=== PATIENT | female | born 1935 | race Caucasian/White ===

== ENCOUNTER 2021-10-10 18:35 | Inpatient (IN) | payer OTHER ==
[~2021-10-10] VITALS: Ht 157.5 cm; Wt 80.9 kg
[2021-10-10 20:15] LABS: Basophils # (auto) 0 10 ^3/uL (0-0.2); Basophils % (auto) 0.5 % (0.0-2.0); Eosinophils # (auto) 0.1 10 ^3/uL (0-0.8); Hematocrit 38.4 % (36.0-46.0); Hemoglobin 12.6 g/dL (12.2-16.2); Lymphocytes # (auto) 1.2 10 ^3/uL (0.4-5.4); Lymphocytes % (auto) 14.9 % (10.0-50.0); Mean Corpuscular Hemoglobin 32.1 pg (28.0-32.0); Mean Corpuscular Hgb Conc. 32.8 g/dL (32.0-36.0); Monocytes # (auto) 0.7 10 ^3/uL (0-1.3); Monocytes % (auto) 7.9 % (0.0-12.0); Neutrophils # (auto) 6.3 10 ^3/uL (1.6-8.6); Neutrophils % (auto) 75.7 % (37.0-80.0); Nucleated Red Blood Cells % 0.5 %; Red Blood Cells 3.91 10^6/uL (4.0-5.20); Red Cell Distribution Width 15.4 % (11.8-14.3); White Blood Cell 8.3 10^3/uL (4.4-10.8)
[2021-10-10 20:32] LABS: Albumin 2.8 g/dL (3.4-5.0); Potassium 4.5 mmol/L (3.5-5.1)
[2021-10-10 20:37] LABS: Bilirubin, Total 2.5 mg/dL (0.2-1.0); Total Protein 6.1 g/dL (6.4-8.2)
[2021-10-10 21:07] LABS: BUN/Creatinine Ratio 31.5
[2021-10-10 23:52] LABS: Urine Bacteria NONE SEEN /hpf (None Seen); Urine Blood Negative /uL (Negative); Urine Hyaline Cast MOD /lpf (0 - 2); Urine Specific Gravity 1.012 (1.001-1.035); Urine WBC 2 /hpf (0 - 5)
[2021-10-11] MEDS ORDERED: ISOS10TA2 PO (04:52)
[2021-10-11] MEDS ORDERED: METO-159 PO (04:52)
[2021-10-11] MEDS ORDERED: APIX2.5T PO (04:52)
[2021-10-11] MEDS ORDERED: AMIO200T33 PO (04:52)
[2021-10-11] MEDS ORDERED: ALLO100T PO (04:52)
[2021-10-11] MEDS ORDERED: ATOR40TA52 PO (04:52)
[2021-10-11] MEDS ORDERED: BUME2TAB5 PO (04:52)
[2021-10-11] MEDS ORDERED: HYDR10TA26 PO (04:52)
[2021-10-11] MEDS ORDERED: MORPHINE SULFATE INJ 2 MG/ml SYRG IV PRN (10:30)
[2021-10-11] MEDS ORDERED: NITROGLYCERIN 0.4 MG SL TAB SL PRN (10:30)
[2021-10-11] MEDS ORDERED: SOD CHL 0.45% 1,000 ML IV ONE (10:30)
[2021-10-11] MEDS ORDERED: DOBUTamine 1000MCG/ML 250 ML IV ONE ×2 (11:00)
[2021-10-11] MEDS ORDERED: DOBUTamine 1000MCG/ML 250 ML IV SCH (11:45)
[2021-10-11 12:53] LABS: Magnesium 2.6 mg/dL (1.6-2.6)
[2021-10-11] MEDS ORDERED: ONDANSETRON HCL 4 MG/2 ML VIAL IV ONE (14:00)
[2021-10-11] MEDS: ISOSORBIDE DINITRATE 10 MG TAB PO SCH ×2 (14:07→21:33)
[2021-10-11] MEDS: AMIODARONE HCL 200 MG TAB PO SCH (21:33)
[2021-10-11 22:00] VITALS: BP 113/50
[2021-10-12 05:00] VITALS: BP 121/42
[2021-10-12] MEDS: ISOSORBIDE DINITRATE 10 MG TAB PO SCH ×3 (06:00→22:40)
[2021-10-12 07:13] LABS: Basophils # (auto) 0 10 ^3/uL (0-0.2); Basophils % (auto) 0.2 % (0.0-2.0); Eosinophils # (auto) 0 10 ^3/uL (0-0.8); Eosinophils % (auto) 0.6 % (0.0-7.0); Lymphocytes # (auto) 0.8 10 ^3/uL (0.4-5.4); Mean Corpuscular Hemoglobin 32.4 pg (28.0-32.0); Mean Corpuscular Hgb Conc. 33.5 g/dL (32.0-36.0); Mean Corpuscular Volume 96.8 fL (80.0-100.0); Monocytes # (auto) 0.7 10 ^3/uL (0-1.3); Neutrophils # (auto) 4.7 10 ^3/uL (1.6-8.6); Neutrophils % (auto) 75.2 % (37.0-80.0); Nucleated Red Blood Cells % 0.1 %; Red Blood Cells 3.71 10^6/uL (4.0-5.20); Red Cell Distribution Width 15.5 % (11.8-14.3); White Blood Cell 6.2 10^3/uL (4.4-10.8)
[2021-10-12 07:29] LABS: INR 1.08 (0.9-1.15); Partial Thromboplastin Time 27.9 sec (24.6-33.4)
[2021-10-12 07:30] LABS: BUN/Creatinine Ratio 35.1; Calcium 8.8 mg/dL (8.5-10.1)
[2021-10-12 08:00] VITALS: BP 116/47
[2021-10-12 09:00] VITALS: BP 116/47
[2021-10-12] MEDS: AMIODARONE HCL 200 MG TAB PO SCH ×2 (10:30→22:39)
[2021-10-12] MEDS: hydrALAZINE HCL 10 MG TAB PO SCH (10:31)
[2021-10-12] MEDS: DOBUTamine 1000MCG/ML 250 ML IV SCH (12:21)
[2021-10-12] MEDS ORDERED: ALBUMIN 25% 100 ML IV ONE (12:30)
[2021-10-12] MEDS ORDERED: POTASSIUM EFFERVESENT TAB 25 MEQ PO ONE (12:30)
[2021-10-12 13:00] VITALS: BP 137/48
[2021-10-12] MEDS ORDERED: NITROGLYCERIN 2% OINT 1GM PKG TD ONE (13:15)
[2021-10-12] MEDS ORDERED: HYDROcodone-ACET 5/325MG TAB PO PRN (15:15)
[2021-10-12] MEDS ORDERED: ONDANSETRON HCL 4 MG/2 ML VIAL IV PRN (15:15)
[2021-10-12 16:51] VITALS: BP 108/48
[2021-10-12] MEDS: SODIUM CHLORIDE 0.9% 1,000 ML IV SCH (17:01)
[2021-10-12 22:00] VITALS: BP 132/41
[2021-10-12] MEDS: SENNA 8.6 MG TAB PO SCH (22:40)
[2021-10-12] MEDS: ACETAMINOPHEN 325 MG TAB PO PRN (23:35)
[2021-10-13] MEDS: DOBUTamine 1000MCG/ML 250 ML IV SCH (00:07)
[2021-10-13] MEDS: SODIUM CHLORIDE 0.9% 1,000 ML IV SCH ×3 (01:51→15:32)
[2021-10-13] MEDS: ISOSORBIDE DINITRATE 10 MG TAB PO SCH ×3 (05:12→22:29)
[2021-10-13 06:50] LABS: BUN/Creatinine Ratio 33.8; Calcium 9.2 mg/dL (8.5-10.1)
[2021-10-13 08:00] VITALS: BP 133/39
[2021-10-13 09:21] VITALS: BP 133/39
[2021-10-13] MEDS ORDERED: POTASSIUM EFFERVESENT TAB 25 MEQ PO ONE (10:00)
[2021-10-13] MEDS: hydrALAZINE HCL 10 MG TAB PO SCH (10:04)
[2021-10-13] MEDS: AMIODARONE HCL 200 MG TAB PO SCH ×2 (10:05→22:28)
[2021-10-13] MEDS: POTASSIUM CHL 20MEQ/100ML 100 ML IV SCH ×2 (10:23→12:49)
[2021-10-13 13:00] VITALS: BP_SYST 135; BP_SYST 150; BP_DIAS 45; BP_DIAS 75
[2021-10-13] MEDS: METOPROLOL TARTRATE 50 MG TAB PO SCH ×2 (13:23→22:36)
[2021-10-13 16:59] VITALS: BP 138/51
[2021-10-13] MEDS: NYSTATIN (MOUTH-THROAT) 500,000 UNITS/5 ML SUSP MT SCH ×2 (18:25→22:27)
[2021-10-13] MEDS: Ensure Enlive Strawberry 8oz Bottle PO SCH (18:48)
[2021-10-13 20:00] VITALS: BP 114/38
[2021-10-13 22:00] VITALS: BP 114/24
[2021-10-13] MEDS: PANTOPRAZOLE 40 MG TAB PO SCH (22:31)
[2021-10-13] MEDS: SENNA 8.6 MG TAB PO SCH (22:32)
[2021-10-14] VITALS (7 sets, daily range): BP systolic 99–130; BP diastolic 31–47
[2021-10-14] MEDS: DOBUTamine 1000MCG/ML 250 ML IV SCH (01:39)
[2021-10-14] MEDS: SODIUM CHLORIDE 0.9% 1,000 ML IV SCH (05:04)
[2021-10-14] MEDS: NYSTATIN (MOUTH-THROAT) 500,000 UNITS/5 ML SUSP MT SCH ×4 (05:48→22:15)
[2021-10-14] MEDS: ISOSORBIDE DINITRATE 10 MG TAB PO SCH ×3 (05:49→22:17)
[2021-10-14] MEDS: Ensure Enlive Strawberry 8oz Bottle PO SCH ×3 (08:00→18:13)
[2021-10-14 09:22] LABS: BUN/Creatinine Ratio 38.1; Calcium 8.5 mg/dL (8.5-10.1); Potassium 3.9 mmol/L (3.5-5.1)
[2021-10-14] MEDS: PANTOPRAZOLE 40 MG TAB PO SCH ×2 (10:21→22:15)
[2021-10-14] MEDS: AMIODARONE HCL 200 MG TAB PO SCH ×2 (10:21→22:17)
[2021-10-14] MEDS: hydrALAZINE HCL 10 MG TAB PO SCH (10:21)
[2021-10-14] MEDS: METOPROLOL TARTRATE 50 MG TAB PO SCH ×2 (10:22→22:00)
[2021-10-14] MEDS: SENNA 8.6 MG TAB PO SCH (22:17)
[2021-10-15] VITALS (7 sets, daily range): BP systolic 99–127; BP diastolic 24–84
[2021-10-15] MEDS: NYSTATIN (MOUTH-THROAT) 500,000 UNITS/5 ML SUSP MT SCH ×4 (06:00→22:03)
[2021-10-15] MEDS: ISOSORBIDE DINITRATE 10 MG TAB PO SCH ×3 (06:00→22:04)
[2021-10-15 07:14] LABS: Calcium 8.7 mg/dL (8.5-10.1); Potassium 3.7 mmol/L (3.5-5.1)
[2021-10-15 07:17] LABS: BUN/Creatinine Ratio 33.5
[2021-10-15] MEDS: Ensure Enlive Strawberry 8oz Bottle PO SCH ×3 (08:00→18:32)
[2021-10-15] MEDS: PANTOPRAZOLE 40 MG TAB PO SCH ×2 (11:15→22:05)
[2021-10-15] MEDS: AMIODARONE HCL 200 MG TAB PO SCH ×2 (11:15→22:03)
[2021-10-15] MEDS: METOPROLOL TARTRATE 50 MG TAB PO SCH ×2 (11:15→22:05)
[2021-10-15] MEDS: hydrALAZINE HCL 10 MG TAB PO SCH (11:16)
[2021-10-15 11:42] LABS: Hepatitis B Surface Antibody Negative (Negative)
[2021-10-15 12:11] LABS: Hepatitis A Total Antibody Negative (Negative)
[2021-10-15 12:37] LABS: Hepatitis C Antibody Negative (Negative)
[2021-10-15] MEDS: SENNA 8.6 MG TAB PO SCH (22:05)
[2021-10-16] MEDS: ACETAMINOPHEN 325 MG TAB PO PRN (04:00)
[2021-10-16 05:00] VITALS: BP 109/34
[2021-10-16] MEDS: ISOSORBIDE DINITRATE 10 MG TAB PO SCH ×2 (05:39→14:00)
[2021-10-16] MEDS: NYSTATIN (MOUTH-THROAT) 500,000 UNITS/5 ML SUSP MT SCH ×3 (05:39→17:12)
[2021-10-16 09:00] VITALS: BP 118/34
[2021-10-16] MEDS: PANTOPRAZOLE 40 MG TAB PO SCH (10:00)
[2021-10-16] MEDS: METOPROLOL TARTRATE 50 MG TAB PO SCH (10:00)
[2021-10-16] MEDS: hydrALAZINE HCL 10 MG TAB PO SCH (10:00)
[2021-10-16] MEDS: Ensure Enlive Strawberry 8oz Bottle PO SCH ×3 (10:37→17:12)
[2021-10-16] MEDS: AMIODARONE HCL 200 MG TAB PO SCH (12:43)
[2021-10-16 13:00] VITALS: BP 107/35
[2021-10-16] MEDS ORDERED: APIXABAN 2.5 MG TAB PO SCH (13:33)
[2021-10-16 17:28] VITALS: BP 106/33
== END 2021-10-16 18:36 | DRG 683 ==
LOC: ER 18:35 → EDBD 18:35 → TELE 10-11 10:24 → TELE-CENTR 10-11 20:26
PROVIDERS: ADMIT Hospitalist; ATTEND Hospitalist
PROC: 05HB33Z Insertion of Infusion Device into Right Basilic Vein, Percutaneous Approach (ICD-10-PCS; principal; 2021-10-12)
PROC: B54MZZA Ultrasonography of Right Upper Extremity Veins, Guidance (ICD-10-PCS; 2021-10-12)
DX: N17.0 Acute kidney failure with tubular necrosis (principal); I13.0 Hypertensive heart and chronic kidney disease with heart failure and stage 1 through stage 4 chronic kidney disease, or unspecified chronic kidney disease; I48.20 Chronic atrial fibrillation, unspecified; N18.4 Chronic kidney disease, stage 4 (severe); D63.1 Anemia in chronic kidney disease; E66.9 Obesity, unspecified; E78.5 Hyperlipidemia, unspecified; R79.89 Other specified abnormal findings of blood chemistry; Z20.822 Contact with and (suspected) exposure to COVID-19; G89.29 Other chronic pain; L98.429 Non-pressure chronic ulcer of back with unspecified severity; R55 Syncope and collapse; E87.6 Hypokalemia; R00.1 Bradycardia, unspecified; E03.9 Hypothyroidism, unspecified; Z68.32 Body mass index [BMI] 32.0-32.9, adult; Z82.49 Family history of ischemic heart disease and other diseases of the circulatory system; Z79.01 Long term (current) use of anticoagulants; Z86.19 Personal history of other infectious and parasitic diseases; Z95.0 Presence of cardiac pacemaker; Z90.49 Acquired absence of other specified parts of digestive tract; I50.9 Heart failure, unspecified
CPT/HCPCS: 36415; 71045; 71250; 74176; 76775; 80048; 80053; 81001; 82306; 82570; 82962; 83690; 83735; 83880; 83970; 84100; 84156; 84300; 84484; 85025; 85610; 85730; 86704; 86706; 86708; 86803; 87081; 87340; 93005; 96361; 96374; 97110; 97116; 97530; G0378; J2405; J3480; P9047

== ENCOUNTER 2022-02-03 18:04 | Inpatient (IN) | payer OTHER, MEDICAID ==
[~2022-02-03] VITALS: Ht 160 cm; Wt 83.5 kg
[~2022-02-03 18:04] MED LIST: ALLO100T PO; AMIO200T33 PO; APIX2.5T PO; ATOR40TA52 PO; BUME2TAB5 PO; HYDR10TA26 PO; ISOS10TA2 PO; METO-159 PO
[2022-02-03 19:30] LABS: Urine Bacteria FEW /hpf (None Seen); Urine Blood Negative /uL (Negative); Urine Specific Gravity 1.018 (1.001-1.035); Urine WBC 78 /hpf (0 - 5); Urine WBC Clumps PRESENT /hpf (None Seen)
[2022-02-03 21:02] LABS: Albumin 2.2 g/dL (3.4-5.0); BUN/Creatinine Ratio 15.4; Calcium 8.6 mg/dL (8.5-10.1); Potassium 3.7 mmol/L (3.5-5.1)
[2022-02-03 21:04] LABS: Basophils # (auto) 0.1 10 ^3/uL (0-0.2); Basophils % (auto) 0.8 % (0.0-2.0); Eosinophils # (auto) 0 10 ^3/uL (0-0.8); Eosinophils % (auto) 0.2 % (0.0-7.0); Hematocrit 31.2 % (36.0-46.0); Hemoglobin 9.9 g/dL (12.2-16.2); Lymphocytes # (auto) 1.2 10 ^3/uL (0.4-5.4); Lymphocytes % (auto) 9.5 % (10.0-50.0); Mean Corpuscular Hemoglobin 30.7 pg (28.0-32.0); Mean Corpuscular Hgb Conc. 31.9 g/dL (32.0-36.0); Mean Corpuscular Volume 96.3 fL (80.0-100.0); Monocytes # (auto) 0.9 10 ^3/uL (0-1.3); Monocytes % (auto) 7.4 % (0.0-12.0); Neutrophils # (auto) 10.3 10 ^3/uL (1.6-8.6); Neutrophils % (auto) 82.1 % (37.0-80.0); Nucleated Red Blood Cells % 0.1 %; Red Blood Cells 3.24 10^6/uL (4.0-5.20); Red Cell Distribution Width 14.1 % (11.8-14.3); White Blood Cell 12.5 10^3/uL (4.4-10.8)
[2022-02-03 21:05] LABS: Bilirubin, Total 0.5 mg/dL (0.2-1.0); Total Protein 5.4 g/dL (6.4-8.2)
[2022-02-04] MEDS ORDERED: ONDANSETRON HCL 4 MG/2 ML VIAL IV PRN (01:30)
[2022-02-04] MEDS ORDERED: NITROGLYCERIN 0.4 MG SL TAB SL PRN (01:30)
[2022-02-04] MEDS ORDERED: cefTRIAXone 1GM/50ML D5W 50 ML IV ONE (01:30)
[2022-02-04] MEDS ORDERED: MORPHINE SULFATE INJ 2 MG/ml SYRG IV PRN (01:30)
[2022-02-04] MEDS ORDERED: HYDROcodone-ACET 5/325MG TAB PO PRN (01:30)
[2022-02-04] MEDS ORDERED: DOCUSATE SOD 100 MG CAP PO PRN (01:30)
[2022-02-04] MEDS ORDERED: FUROSEMIDE 20 MG/2 ML VIAL IV ONE (01:45)
[2022-02-04] MEDS ORDERED: ALBUMIN 25% 100 ML IV ONE (01:45)
[2022-02-04 06:19] LABS: Basophils # (auto) 0 10 ^3/uL (0-0.2); Basophils % (auto) 0.3 % (0.0-2.0); Eosinophils # (auto) 0.1 10 ^3/uL (0-0.8); Eosinophils % (auto) 1.4 % (0.0-7.0); Hematocrit 27.4 % (36.0-46.0); Lymphocytes # (auto) 1.1 10 ^3/uL (0.4-5.4); Lymphocytes % (auto) 18.2 % (10.0-50.0); Mean Corpuscular Hemoglobin 32.3 pg (28.0-32.0); Mean Corpuscular Volume 97.8 fL (80.0-100.0); Monocytes # (auto) 0.6 10 ^3/uL (0-1.3); Monocytes % (auto) 10.5 % (0.0-12.0); Neutrophils # (auto) 4.3 10 ^3/uL (1.6-8.6); Neutrophils % (auto) 69.6 % (37.0-80.0); Nucleated Red Blood Cells % 0.2 %; Red Cell Distribution Width 14.1 % (11.8-14.3); White Blood Cell 6.2 10^3/uL (4.4-10.8)
[2022-02-04 06:38] LABS: Albumin 2.6 g/dL (3.4-5.0); Calcium 8.4 mg/dL (8.5-10.1)
[2022-02-04 06:43] LABS: Bilirubin, Total 0.6 mg/dL (0.2-1.0); Total Protein 4.8 g/dL (6.4-8.2)
[2022-02-04 06:51] LABS: Potassium 2.9 mmol/L (3.5-5.1)
[2022-02-04] MEDS: ACETAMINOPHEN 325 MG TAB PO PRN (06:52)
[2022-02-04] MEDS: cefTRIAXone 1GM/50ML D5W 50 ML IV SCH (09:33)
[2022-02-04] MEDS ORDERED: FUROSEMIDE 20 MG/2 ML VIAL IV SCH (10:00)
[2022-02-04] MEDS: FAMOTIDINE (10MG/ML) 2ML VL IV SCH ×2 (10:13→22:42)
[2022-02-04] MEDS: APIXABAN 2.5 MG TAB PO SCH ×2 (10:14→22:43)
[2022-02-04] MEDS: ASCORBIC ACID 500 MG TAB PO SCH ×2 (10:14→22:43)
[2022-02-04] MEDS: ZINC SULFATE 220mg CAP or TAB PO SCH (10:14)
[2022-02-04] MEDS: MULTIPLE VITAMIN TAB PO SCH (10:14)
[2022-02-04] MEDS: CARVEDILOL 3.125 MG TAB PO SCH ×2 (10:15→22:43)
[2022-02-04 12:10] VITALS: BP 119/45
[2022-02-04] MEDS ORDERED: FLEET ENEMA(ADULT) 135 ML PR ONE (13:30)
[2022-02-04] MEDS ORDERED: PANT40T PO (15:04)
[2022-02-04] MEDS: POTASSIUM CHLORIDE 20 MEQ, LIDOCAINE 1% (LOCAL ANESTH.) 2 ML in SODIUM CHL 0.9% 100 ML IV SCH ×3 (15:19→20:53)
[2022-02-04 16:45] VITALS: BP 145/65
[2022-02-04 21:57] VITALS: BP 122/53
[2022-02-04] MEDS: SOD CHL 0.45% 1,000 ML IV SCH (22:42)
[2022-02-05 01:14] LABS: Potassium 3.2 mmol/L (3.5-5.1)
[2022-02-05 01:16] LABS: Magnesium 1.8 mg/dL (1.6-2.6)
[2022-02-05] MEDS: ACETAMINOPHEN 325 MG TAB PO PRN ×2 (02:09→17:01)
[2022-02-05 04:49] VITALS: BP 132/73
[2022-02-05] MEDS: SOD CHL 0.45% 1,000 ML IV SCH ×2 (06:31→16:45)
[2022-02-05 06:38] LABS: Potassium 3.5 mmol/L (3.5-5.1)
[2022-02-05 06:41] LABS: Basophils # (auto) 0 10 ^3/uL (0-0.2); Basophils % (auto) 0.4 % (0.0-2.0); Eosinophils # (auto) 0.1 10 ^3/uL (0-0.8); Eosinophils % (auto) 2.4 % (0.0-7.0); Hematocrit 29.4 % (36.0-46.0); Hemoglobin 9.6 g/dL (12.2-16.2); Lymphocytes # (auto) 1.2 10 ^3/uL (0.4-5.4); Lymphocytes % (auto) 19.7 % (10.0-50.0); Mean Corpuscular Hemoglobin 31.4 pg (28.0-32.0); Mean Corpuscular Hgb Conc. 32.6 g/dL (32.0-36.0); Mean Corpuscular Volume 96.3 fL (80.0-100.0); Monocytes # (auto) 0.6 10 ^3/uL (0-1.3); Monocytes % (auto) 10.5 % (0.0-12.0); Neutrophils # (auto) 4.1 10 ^3/uL (1.6-8.6); Nucleated Red Blood Cells % 0.1 %; Red Blood Cells 3.05 10^6/uL (4.0-5.20); Red Cell Distribution Width 14.1 % (11.8-14.3); White Blood Cell 6.1 10^3/uL (4.4-10.8)
[2022-02-05 06:46] LABS: BUN/Creatinine Ratio 18.4; Calcium 8.4 mg/dL (8.5-10.1)
[2022-02-05 08:25] VITALS: BP 127/69
[2022-02-05 09:30] VITALS: BP 130/64
[2022-02-05] MEDS: FAMOTIDINE (10MG/ML) 2ML VL IV SCH (10:32)
[2022-02-05] MEDS: cefTRIAXone 1GM/50ML D5W 50 ML IV SCH (10:32)
[2022-02-05] MEDS: ASCORBIC ACID 500 MG TAB PO SCH (10:33)
[2022-02-05] MEDS: CARVEDILOL 3.125 MG TAB PO SCH (10:35)
[2022-02-05] MEDS: ZINC SULFATE 220mg CAP or TAB PO SCH (10:35)
[2022-02-05] MEDS: APIXABAN 2.5 MG TAB PO SCH (10:36)
[2022-02-05] MEDS: MULTIPLE VITAMIN TAB PO SCH (10:36)
[2022-02-05 13:00] VITALS: BP 127/69
[2022-02-05] MEDS ORDERED: AMOX-277 PO (13:55)
[2022-02-05] MEDS ORDERED: BUME2TAB5 PO (13:55)
[2022-02-05 16:30] VITALS: BP 120/64
[2022-02-05] MEDS ORDERED: AMIODARONE HCL 200 MG TAB PO SCH (22:00)
[2022-02-06] MEDS ORDERED: ATORVASTATIN 20 MG TAB PO SCH (10:00)
[2022-02-06] MEDS ORDERED: ALLOPURINOL 100 MG TAB PO SCH (10:00)
[2022-02-06] MEDS ORDERED: PANTOPRAZOLE 40 MG TAB PO SCH (10:00)
== END 2022-02-05 19:07 | disposition hospice, home (50) | DRG 389 ==
LOC: ER 18:04 → EDBD 18:04 → OVERFLOW 02-04 01:37 → CENTRAL 02-04 12:09 → EAST 02-04 12:13 → CENTRAL 02-04 16:39
PROVIDERS: ADMIT Nurse Practitioner Family; ATTEND Internal Medicine
DX: K56.41 Fecal impaction (principal); E44.0 Moderate protein-calorie malnutrition; E87.0 Hyperosmolality and hypernatremia; J98.11 Atelectasis; N17.9 Acute kidney failure, unspecified; N39.0 Urinary tract infection, site not specified; E78.5 Hyperlipidemia, unspecified; Z20.822 Contact with and (suspected) exposure to COVID-19; D64.9 Anemia, unspecified; E88.09 Other disorders of plasma-protein metabolism, not elsewhere classified; E87.6 Hypokalemia; F03.90 Unspecified dementia, unspecified severity, without behavioral disturbance, psychotic disturbance, mood disturbance, and anxiety; I25.10 Atherosclerotic heart disease of native coronary artery without angina pectoris; K21.9 Gastro-esophageal reflux disease without esophagitis; M10.9 Gout, unspecified; L98.429 Non-pressure chronic ulcer of back with unspecified severity; I48.91 Unspecified atrial fibrillation; I11.0 Hypertensive heart disease with heart failure; I50.9 Heart failure, unspecified; Z74.01 Bed confinement status; Z86.19 Personal history of other infectious and parasitic diseases; Z90.49 Acquired absence of other specified parts of digestive tract; Z68.32 Body mass index [BMI] 32.0-32.9, adult; K57.30 Diverticulosis of large intestine without perforation or abscess without bleeding
CPT/HCPCS: 36415; 70450; 74176; 80048; 80053; 81001; 82140; 83735; 83880; 84132; 84484; 85025; 85610; 87077; 87186; 87205; 87426; 93306; 96365; 96368; 96375; 96376; G0378; J0696; J2001; J2405; J3490; P9047